=== PATIENT | female | born 1990 | race Caucasian/White ===

== ENCOUNTER 2016-06-28 22:04 | Observation (INO) | payer OTHER ==
[~2016-06-28] VITALS: Ht 149.9 cm; Wt 53.1 kg
[2016-06-29 03:18] LABS: HEMOGLOBIN 14.9 gm/dl (12.3-15.3); RED BLOOD COUNT 5.51 M/UL (4.00-5.10)
[2016-06-29 03:47] LABS: BUN/CREATININE RATIO 21 (0-10)
[2016-06-29 16:46] LABS: HEMOGLOBIN 14.7 gm/dl (12.3-15.3)
--- NOTE | 2016-06-30 01:33 | NUR ---
0130-PT WOKE UP CUSSING AND REFUSING IV FLUIDS, TELEMETRY, AND PULSE OXIMETER. PT STATED SHE WANTED TO SLEEP AND THAT SHE COULD NOT SLEEP WITH EVERYTHING HOOKED UP.SHE ALSO STATED THAT IF WE COULDNT DO ANYTHING FOR HER SHE WAS GOING HOME. PATIENT WAS NONCOMPLIENT WITH TELE DURING DAY SHIFT AND ALSO REFUSED A NEW IV FOR CT SCAN ON DAY SHIFT WELL. PATIENT WANTS PAIN MEDICATION AND SOMETHING TO QUOTE "PUT HER TO SLEEP AND KEEP HER ASLEEP" AND THIS WAS RELAYED TO DAY SHIFT PHYSICIAN WHICH ACCORDING TO DAY NURSE [place] STATED THAT HE WAS NOT PRESCRIBING IT TO HER. TELEMETRY WAS NOTIFIED OF REFUSAL AND I EXPLAINED THAT THAT WAS THE ONLY WAY FOR ME TO MONITOR HER HEART CLOSELY.I ALSO AT BEGINNING OF SHIFT GAVE HER EDUCATION ON HER DISEASE PROCESS AND HAD HER SIGN PAPER STATING OF SUCH WHICH i THEN PUT ON HER CHART UNDER PATIENT EDUCATION.
== END 2016-06-30 14:09 | disposition left against medical advice (07) ==
LOC: M/S 22:04
PROVIDERS: Internal Medicine Pulmonary Disease; ADMIT Internal Medicine
DX: R06.02 Shortness of breath (principal); R07.9 Chest pain, unspecified; E86.0 Dehydration; R79.89 Other specified abnormal findings of blood chemistry; I27.2 Other secondary pulmonary hypertension; F19.10 Other psychoactive substance abuse, uncomplicated; N39.0 Urinary tract infection, site not specified; A59.9 Trichomoniasis, unspecified; I31.3 Pericardial effusion (noninflammatory); R91.1 Solitary pulmonary nodule; Z90.89 Acquired absence of other organs; Z98.818 Other dental procedure status; Z82.49 Family history of ischemic heart disease and other diseases of the circulatory system
CPT/HCPCS: ECHO; 36415; 80048; 80074; 82550; 82553; 83880; 84443; 84484; 85014; 85018; 85027; 85610; 85730; 86039; 86140; 87040; 87390; 93005; 93306; 94762; G0378; G0379; J7030; Q0177